=== PATIENT | male | born 1955 | race Caucasian/White ===

== ENCOUNTER 2020-02-25 07:18 | Day surgery (SDC) | payer MEDICARE, OTHER ==
[~2020-02-25] VITALS: Ht 180.3 cm; Wt 97.3 kg
[~2020-02-25 07:18] MED LIST: ACETAMINOPHEN-1 EACH PO; COZAAR100 MG PO; LO-DOSE ASPIRIN81 M1 PO; OMEPRAZOLE20 MG PO
--- NOTE | 2020-02-25 09:45 | NUR ---
02/25/20 0945 Sheets,Giselle 0951 PT ARRIVED TO PACU ON LEFT SIDE AND SMALL AMOUNT OF SNORING NOTED VSS. RESP EVEN AND UNLABORED.
--- NOTE | 2020-02-25 10:36 | OR ---
[facility] [address] [place], [place] [address] Signed DATE OF OPERATION: 02/25/2020 SURGEON: Magui Encarnacion MD PREOPERATIVE DIAGNOSIS: Personal history of colonic polyps in 2013 (age 57). POSTOPERATIVE DIAGNOSES: 1. 4 mm and 6 mm polyps at 110 cm (proximal left colon). 2. Lfnzlns-wa-ewpyfevp external hemorrhoids. 3. Internal anal skin tag x1. 4. Minimal sigmoid diverticulosis. PROCEDURE: Colonoscopy with hot biopsy. ESTIMATED BLOOD LOSS: None. INDICATIONS: Hamilton is a 64-year-old gentleman asked to see me for a followup colonoscopy. He underwent screening colonoscopy at age 57 while living in [place], [place], this was in 2012. A small polyp had been removed and he was asked to come every 5 years. He currently has no lower GI complaints. There is no family history of colon cancer or polyps. I had met with Hamilton in the office, and I gave him a pamphlet on colonoscopy. He understands the nature of the test along with the risks including, but not limited to gas bloating, crampy abdominal pain, bleeding, perforation requiring surgery, and missed diagnosis. He also understands the need for IV conscious sedation, he had expressed understanding and wished to proceed. PROCEDURE NOTE: Hamilton was taken into our endoscopy suite and placed in the left lateral decubitus position. He was given 7 mg of Versed and 150 mcg of fentanyl to cover the case. A digital rectal exam was performed. He does have ndxunnr-if-pvkmxjbs external hemorrhoids. He had good sphincter tone. Prostate was mildly indurated. The adult colonoscope was introduced and advanced all around into the cecum under direct visualization of camera without difficulty. His prep was good. We could easily see the appendiceal orifice and the ileocecal valve. The scope was slowly withdrawn. The two polyps in the proximal left colon were easily removed with hot biopsy forceps and placed into the same pathology specimen jar. He does have diverticula in the left and sigmoid Electronically Signed By: MAGUI ENCARNACION MD 02/25/20 1036 PATIENT NAME: HAMILTON JEAN OPERATIVE REPORT DATE OF : 51 REPORT #: [id number] PHYSICIAN: MAGUI ENCARNACION MD PCP: RANDY MONTES PA-C REPORT IS CONFIDENTIAL AND NOT TO BE RELEASED WITHOUT AUTHORIZATION [facility] [address] [place] [id number] Signed colon. They were nkotuvr-xa-octqvrte in size, minimal number and scattered about. The rectum itself was unremarkable. Upon retroflexion of the scope, there was one small internal anal skin tag. After this, the gas was suctioned out, colonoscope removed. Hamilton tolerated the procedure quite well. RECOMMENDATIONS: I will see Hamilton back in my office in 7 to 14 days to review his results. I suspect he will stay on the 5-year rotation. Magui Encarnacion MD ALB/MODL /[id number] cc: ZAYRA Phillips MD Copies: RANDY MONTES PA-C, ANDREW L MD ~ Electronically Signed By: MAGUI ENCARNACION MD 02/25/20 1036 PATIENT NAME: HAMILTON JEAN OPERATIVE REPORT DATE OF : 51 REPORT #: [id number] PHYSICIAN: MAGUI ENCARNACION MD PCP: RANDY MONTES PA-C REPORT IS CONFIDENTIAL AND NOT TO BE RELEASED WITHOUT AUTHORIZATION
--- NOTE | 2020-02-26 11:11 | PATH ---
[facility] [address] [place], [place] [address] Signed SPECIMEN(S): A COLON POLYPS AT 110 CM SPECIMEN SOURCE: A. COLON POLYPS AT 110 CM CLINICAL HISTORY: Colonoscopy. Small polyp in 2012. Postop: External hemorrhoids, skin tags, diverticulosis, polyps x 2. MICROSCOPIC DESCRIPTION: Histologic sections of all submitted blocks are examined by light microscopy. These findings, together with the gross examination, support the pathologic diagnosis. FINAL PATHOLOGIC DIAGNOSIS: Colon, polyps at 110 cm, polypectomy: - Fragments of tubular adenoma(s); negative for high-grade dysplasia. - Fragments of cauterized colonic mucosa with no definitive histopathology abnormality. - Negative for malignancy. NAL:cml:C2NR GROSS DESCRIPTION: The specimen, labeled "GS, 1," and designated on the requisition "colon polyps at 110 cm," is received in formalin and consists of three dawson soft tissue fragments that measure 0.3-0.4 cm in greatest dimension. The specimen is entirely submitted in cassette (A1). AT (under the direct supervision of a pathologist) The Gross Description was prepared using a voice recognition system. The report was reviewed for accuracy; however, sound-alike word errors, addition and/or deletions may occur. If there is any question about this report, please contact Client Services. PERFORMING LABORATORY: The technical component was performed by [facility] [employer] [address] [place] [id number] (Installer Inspector Final: Tierra Archer MD; CLIA# [id number]). Professional interpretation was performed by [employer], [address] [address] (CLIA# [id number]). Diagnostician: Bekah Mccallum MD Pathologist PATIENT NAME: JERRY JEAN PATHOLOGY DATE OF : 51 REPORT #: [id number] PHYSICIAN: [facility] PCP: RANDY MONTES PA-C REPORT IS CONFIDENTIAL AND NOT TO BE RELEASED WITHOUT AUTHORIZATION [address] [address] Signed Electronically Signed 02/26/2020 Copies: ~ PATIENT NAME: JERRY JEAN PATHOLOGY DATE OF : 51 REPORT #: [id number] PHYSICIAN: [facility] PCP: RANDY MONTES PA-C REPORT IS CONFIDENTIAL AND NOT TO BE RELEASED WITHOUT AUTHORIZATION
== END 2020-02-25 10:25 | disposition home or self-care (01) ==
LOC: OPS 07:18 → DS 07:18 → OPS 08:15
PROVIDERS: ATTEND Colon & Rectal Surgery
PROC: 0DBG8ZX Excision of Left Large Intestine, Via Natural or Artificial Opening Endoscopic, Diagnostic (ICD-10-PCS; principal; 2020-02-25 08:15)
DX: Z12.11 Encounter for screening for malignant neoplasm of colon (principal); D12.4 Benign neoplasm of descending colon; K64.4 Residual hemorrhoidal skin tags; K57.30 Diverticulosis of large intestine without perforation or abscess without bleeding; K21.9 Gastro-esophageal reflux disease without esophagitis; I10 Essential (primary) hypertension; Z86.010 Personal history of colon polyps; Z87.891 Personal history of nicotine dependence; Z79.82 Long term (current) use of aspirin; Z91.018 Allergy to other foods
CPT/HCPCS: 99153; G0500; J2250; J3010; J7121

== ENCOUNTER 2021-01-29 00:37 | Emergency (ER) | payer MEDICARE, OTHER ==
[~2021-01-29] VITALS: Ht 180.3 cm; Wt 97.1 kg
== END 2021-01-29 03:10 | disposition home or self-care (01) ==
LOC: ED 00:37
DX: N13.2 Hydronephrosis with renal and ureteral calculous obstruction (principal); I10 Essential (primary) hypertension; Z87.891 Personal history of nicotine dependence; Z79.899 Other long term (current) drug therapy; Z79.82 Long term (current) use of aspirin
CPT/HCPCS: 74176; 80053; 81001; 85025; 99284-25; J7030